=== PATIENT | male | born 1995 | race African-American/Black ===

== ENCOUNTER 2023-07-15 13:16 | Emergency (ER) | payer OTHER, MEDICAID, SELFPAY ==
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
[2023-07-15 13:57] VITALS: BP 152/87; PULSE 77; RESP 18; TEMP 36.8; O2SAT 99; BMI 46.6
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
== END 2023-07-15 19:19 | disposition home or self-care (01) ==
PROVIDERS: Emergency Provider Emergency Medicine; PCP Pediatrics
DX: S13.4XXA Sprain of ligaments of cervical spine, initial encounter (principal); M54.50 Low back pain, unspecified; M54.2 Cervicalgia; V43.52XA Car driver injured in collision with other type car in traffic accident, initial encounter; Y93.9 Activity, unspecified; Y92.410 Unspecified street and highway as the place of occurrence of the external cause; Y99.9 Unspecified external cause status
CPT/HCPCS: 72100; 72125; 99282; 99284

== ENCOUNTER 2024-08-11 10:14 | Outpatient (REF) | payer OTHER, MEDICAID, SELFPAY ==
[2024-08-11 14:23] LABS: MANUAL DIFF FLAG NO
[2024-08-11 14:32] LABS: Basophils Absolute Auto 0.1 X10*3/uL (0.0-0.2); Basophils Percent Auto 1.1 % (0-2); Eosinophils Absolute Auto 0.1 X10*3/uL (0.0-0.4); Eosinophils Percent Auto 1.8 % (0-4); Hematocrit 43.6 % (42.0-52.0); Hemoglobin 13.9 g/dl (14.0-18.0); Imm Gran Abs Auto 0.02 X10*3/uL (0.00-0.03); Imm Gran Pct Auto 0.3 % (0.0-0.4); Lymphocytes Absolute Auto 1.8 X10*3/uL (1.2-4.9); Lymphocytes Percent Auto 23.1 % (20-40); Mean Corpuscular HGB Conc 31.9 g/dl (31.0-36.0); Mean Corpuscular Hemoglobin 27.6 pg (27.0-33.0); Mean Corpuscular Volume 86.7 fL (80.0-98.0); Mean Platelet Volume 10.2 fL (9.4-12.4); Monocytes Absolute Auto 0.5 X10*3/uL (0.1-1.2); Monocytes Percent Auto 6.9 % (2-11); Neutrophils Absolute Auto 5.1 x10*3/uL (2.0-8.3); Neutrophils Percent Auto 66.8 % (45-73); Platelet Count 265 X10*3/uL (160-400); Red Blood Count 5.03 X10*6/uL (4.60-5.80); Red Cell Distribution Width 14.5 % (11.0-16.0); White Blood Count 7.6 X10*3/uL (4.8-10.8)
[2024-08-11 14:39] LABS: Estimated Average Glucose 97 mg/dL; Hemoglobin A1C 110.7298 umol/L; Total Hemoglobin (HGBA1C) 3496.9832 umol/L
[2024-08-11 14:53] LABS: Alanine Aminotransferase 17 U/L (0-40); Alkaline Phosphatase 46 U/L (39-117); Anion Gap 10 (12-20); Aspartate Amino Transferase 25 U/L (5-37); Bilirubin Direct 0.2 mg/dL (0.0-0.5); Blood Urea Nitrogen 11 mg/dL (9-16); Calcium 9.4 mg/dL (8.4-10.2); Carbon Dioxide 26 mmol/L (22-29); Chloride 106 mmol/L (96-108); Cholesterol 131 mg/dL (<200); Estimated Glomerular Filt Rate > 60; Glucose Fasting 90 mg/dL (60-99); HDL Cholesterol 46 mg/dL (>40); LDL Cholesterol Calculated 68 mg/dL (<100); Potassium 4.4 mmol/L (3.3-5.1); Sodium 138 mmol/L (135-145); Total Protein 8.2 g/dL (6.5-8.0); Triglycerides 86 mg/dL (<150)
[2024-08-11 15:09] LABS: TSH reflex Free T4 1.51 uIU/mL (0.32-4.0)
[2024-08-12 08:29] LABS: HIV AB/AG Nonreactive (Nonreactive); HIV Num 1 0.04 S/CO (0.00-0.99); ~HepC Num1 0.36 S/CO (0.00-0.79); ~Hepatitis C Antibody Nonreactive (Nonreactive)
== END 2024-08-11 10:15 | disposition home or self-care (01) ==
LOC: HO.CHCLDS 10:14
PROVIDERS: Visit Provider Pediatrics
DX: R03.0 Elevated blood-pressure reading, without diagnosis of hypertension (principal); E66.01 Morbid (severe) obesity due to excess calories; Z13.1 Encounter for screening for diabetes mellitus
CPT/HCPCS: 36415; 80048; 80061; 80076; 83036; 84443; 85025; 86803; 87389

== ENCOUNTER 2025-04-02 16:26 | Emergency (ER) | payer OTHER, SELFPAY ==
--- NOTE | ~2025-04-02 | XR_ITS ---
CLINICAL HISTORY: pain 3 views lumbar spine Comparison: CR/SR - XR LUMBAR SPINE 2-3V - 07/15/23 14:45 EDT Findings: Normal vertebral body alignment. No acute fractures or dislocation. No significant degenerative change. IMPRESSION: No acute findings. This document has been electronically signed by: Yamile Bernardo MD on 04/02/2025 18:05:59
[2025-04-02 16:27] VITALS: BP 129/57; PULSE 61; RESP 18; TEMP 36.8; O2SAT 100; BMI 44.9
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
--- OUTSIDE RECORDS SUMMARY | 2025-04-02 17:08 | XMS_ITS | Clinical Summary ---
Author Organization [employer] Address [address] [place] [address] Care Team Providers Care Catering Server Name Role Phone Andressa Wesley MD Primary Care Provider [phone] Allergies Active Allergy Reactions Criticality Noted Date Comments Sulfamethoxazole Other reaction(s): unspecified Trimethoprim Other reaction(s): unspecified Medications No known medications Active Problems Problem Noted Date Diagnosed Date Acute back pain with sciatica 04/24/2023 Anxiety 06/21/2017 Obstructive sleep apnea of adult 09/20/2015 Encounters Date Type Department Care Team Description 01/19/2025 Telephone [facility] [address] [place] [address] Andressa Wesley MD Recall from Last 3 Months Immunizations Immunization Administration Dates Next Due Hep B, adult 02/17/2014,01/06/2014 Influenza injectable quadriv alent IIV4 with preservative 09/20/2015 Influenza, Split (incl. purified surface antigen ) 08/27/2013 Tdap 08/27/2013 Social History Tobacco Use Types Packs/Day Years Used Date Smoking Tobacco: Former Cigarettes Q uit: 2021 Smokeless Tobacco: Never Alcohol Use Standard Drinks/Week Comments Never 0 (1 standard drink = 0.6 oz pur e alcohol) Depression Answer Date Recorded Patient Health Questionnaire-9 Score 12 08/11/2024 Patient Health Questionnaire-9 Score 12 08/11/2024 Last PHQ-9: Questionnaire Data Not on file 1 Housing Stability Answer Date Recorded What is your housing situation today? I have aliya sing 08/04/[address] you li ve. Do you have problems with any of the following? None of the above 08/04/2024 Food Insecurity Answer Date Recorded Within the past 12 months, y ou worried that your food would run out before you got money to buy more: Never True 08/04/2024 Within the past 12 months,th e food you bought just didn't last and you didn't have enough money to get more: Never True Transportation Answer Date Recorded In the past 12 months, has l ack of transportation kept you from medical appts, meetings, work or from getting things needed for daily living? No 08/04/2024 Utilities Answer Date Recorded In the past 12 months, has t he electric, gas, oil or water company threatened to shut off services in your home? No 08/04/2024 Depression Answer Date Recorded Patient Health Questionnaire-2 Score 5 08/11/2024 Internet Access Answer Date Recorded Internet Access Q1 Yes 08/04/2024 Internet Access Q2 Not on file 08/04/2024 Sex and Gender Information Value Date Recorded Sex Assigned at Male 09/10/2022 10:15 AM EDT Legal Sex Male 10:15 AM EDT Gender Identity Male 09/10/2022 10:15 AM EDT Sexual Orientation Straight 08/11/2024 9: 56 AM EDT Last Filed Vital Signs Vital Sign Reading Time Taken Comments Blood Pressure 130/80 08/11/2024 9:36 AM EDT Pulse 71 08/11/2024 9:17 AM EDT Temperature 36.8 ??C (98.3 ??F) 08/11/2024 9:17 AM ED T Respiratory Rate 18 08/11/2024 9:17 AM EDT Oxygen Saturation 98% 08/11/2024 9:17 AM EDT Inhaled Oxygen Concentration - - Weight 131 kg (288 lb 4 oz) 08/11/2024 9:17 AM E DT Height 175.3 cm (5' 9 ) 08/11/2024 9:17 AM EDT Body Mass Index 42.57 08/11/2024 9:17 AM EDT Plan of Treatment Health Maintenance Due Date Last Done Comments Disability Screening 1993 Alcohol/Substance Use Screening 2005 Family Planning (PISQ) 2008 Hepatitis B Vaccines (3 of 3 - 19+ 3-dose series) 07/06/2014 02/17/2014, 01/06/2014 DTaP/Tdap/Td Vaccines (2 - T d or Tdap) 08/27/2023 08/27/2013 COVID-19 Vaccine (2 - 2023-2 5 season) 2024 09/04/2022 Influenza Vaccine (#1) 2024 5, 08/27/2013 SDOH Screening 08/04/2025 08/04/2024 Depression Screening 08/11/2025 08/11/2024, 08/11/2024 Tobacco Screening 08/11/2025 08/11/2024 Lipid Panel 08/11/2029 08/11/2024, 03/09/2022 Zoster Vaccines (1 of 2) 2043 RSV Patients and Patients Aged 60 years or older (1 - 1-dose 75+ series) 2068 HIV Screening Completed 08/11/2024 Hepatitis C Screening Completed 08/11/2024 HIB Vaccines Aged Out No longer eligi ble based on patient's age to complete this topic HPV Vaccines Aged Out No longer eligi ble based on patient's age to complete this topic Hepatitis A Vaccines Aged Out No long er eligible based on patient's age to complete this topic IPV Vaccines Aged Out No longer eligi ble based on patient's age to complete this topic Meningococcal B Vaccine Aged Out No l onger eligible based on patient's age to complete this topic Meningococcal Vaccine Aged Out No jesse nickie eligible based on patient's age to complete this topic Pneumococcal Vaccine: Pediatrics (0 to 5 Years) and At-Risk Patients (6 to 49) Years) Aged Out No longer eligible b ased on patient's age to complete this topic RSV under 20 months Aged Out No longe r eligible based on patient's age to complete this topic Rotavirus Vaccines Aged Out No longer eligible based on patient's age to complete this topic Procedures Procedure Name Priority Date/Time Associated Diagnosis Comments HEPATITIS C AB W/REFL TO HCV RNA, QN, PCR Routine 08/11/2024 10:16 AM EDT Elevated blood pressure reading Obesity, morbid (more than 100 lbs over ideal weight or BMI > 40) (CMS/HCC) HIV 1/2 ANTIGEN/ANTIBODY, FOURTH GENERATION W/RFL Routine 08/11/2024 10:16 AM EDT Elevated blood pressure reading Obesity, morbid (more than 100 lbs over ideal weight or BMI > 40) (CMS/HCC) LIPID PANEL, STANDARD Routine 08/11/2024 10:16 AM EDT Elevated blood pressure reading Obesity, morbid (more than 100 lbs over ideal weight or BMI > 40) (CMS/HCC) from Last 3 Months or Most Recently Relevant to Health Maintenance Results * Hepatitis C Antibody with Reflex to HCV, RNA, Quantitative, Real-Time PCR (08/11/2024 10:16 AM EDT) Pathologist [facility] Hepatitis C Antibody Nonreactive Nonreactive [facility] Comment:Antibodies to HCV no t detected; does not exclude early acuteHCV infection. Blood Venous blood specimen / Unknown 08/11/2024 10:16 AM EDT 08/11/2024 2:13 PM EDT us Andressa Wesley MD LAB BLOOD ORDERABLES Final Re sult [facility] [address] [place] [phone] * HIV-1/2 Antigen and Antibodies, Fourth Generation, with Reflexes (08/11/2024 10:16 AM EDT) Pathologist [facility] HIV AB/AG Nonreactive Nonreactive [facility] Comment:HIV-1 p24 Ag and/or HIV-1/HIV-2 Ab not detected.A test result that is nonreactive does not exclude thepossibility of exposure to or infection with HIV-1 and/orHIV-2. Nonreactive results in this assay for individualswith prior exposure to HIV-1 and/or HIV-2 may be due toantigen and antibody levels that are below the limit ofdetection of this assay.The [employer] HIV Ag/Ab Combo assay result andsupplemental assay results should be interpreted inconjunction with the patient's clinical presentation,history and other laboratory results. If the results areinconsistent with clinical evidence, additional testing issuggested to confirm the result. Blood Venous blood specimen / Unknown 08/11/2024 10:16 AM EDT 08/11/2024 2:13 PM EDT Andressa Wesley MD LAB BLOOD ORDERABLES Final Re sult Performing Organization Address [facility] Co de Phone Number [facility] [address] [place] [phone] * Lipid Panel, Standard (08/11/2024 10:16 AM EDT) Triglycerides 86 <150 mg/dL [facility] Comment:Desirable Triglyceri de: less than 150 mg/dLBorderline High Triglyceride 150-199 mg/dLHigh Triglyceride: 200-499 mg/dLVery High Triglyceride: greater than or equal to 5OO mg/dL Cholesterol 131 <200 mg/dL [facility] Comment:Desirable Cholestero l: less than 200 mg/dLBorderline High Cholesterol: 200-239 mg/dLHigh Cholesterol: greater than 239 mg/dL LDL Cholesterol Calculated 68 <100 mg/dL [facility] Comment:Desirable LDL: less than 100 mg/dLNear Optimal/Above Optimal LDL: 110- 129 mg/dLBorderline High LDL: 130-159 mg/dLHigh LDL: 160-189 mg/dLVery High LDL: greater than or equal to 190 mg/dL HDL Cholesterol 46 >40 mg/dL [facility] Comment:Desirable HDL: great er than 40 mg/dL Note: This HDL assay may give artificially low results in patients with liver disease. Blood Venous blood specimen / Unknown 08/11/2024 10:16 AM EDT 08/11/2024 2:13 PM EDT us Andressa Wesley MD LAB BLOOD ORDERABLES Final Re sult Performing Organization Address [facility] Co de Phone Number [facility] [address], [place] [phone] from Last 3 Months or Most Recently Relevant to Health Maintenance Insurance [facility] [employer] Care Teams Catering Server Relationship Specialty Start Date End Date Andressa Wesley MD [address] [place] [phone] PCP - General Family Medicine 07/29/12
[2025-04-02 18:18] VITALS: BP 139/65; PULSE 68; RESP 18; TEMP 36.5; O2SAT 99
[2025-04-02 18:51] VITALS: BP 139/65; PULSE 68; RESP 18; TEMP 36.5; O2SAT 99
== END 2025-04-02 18:51 | disposition home or self-care (01) ==
PROVIDERS: Emergency Provider Emergency Medicine Emergency Medical Services
DX: M54.50 Low back pain, unspecified (principal)
CPT/HCPCS: 72100; 99283

== ENCOUNTER → 2025-04-02 16:29 | Outpatient (BNV) | payer OTHER, SELFPAY | PROVIDERS: Emergency Provider Emergency Medicine Emergency Medical Services; Visit Provider Radiology Diagnostic Radiology | DX: M54.50 Low back pain, unspecified (principal) | CPT/HCPCS: 72100 ==

== ENCOUNTER 2025-04-12 11:56 | Outpatient (REF) | payer OTHER, SELFPAY ==
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
--- OUTSIDE RECORDS SUMMARY | 2025-04-12 13:10 | XMS_ITS | Clinical Summary ---
Author Organization [employer] Address [address] [facility] [address] [place] [address] Care Team Providers Care Torch Operator Name Role Phone Andressa Wesley MD Primary Care Provider [phone] Allergies Active Allergy Reactions Criticality Noted Date Comments Sulfamethoxazole Other reaction(s): unspecified Trimethoprim Other reaction(s): unspecified Medications No known medications Active Problems Problem Noted Date Diagnosed Date Acute back pain with sciatica 04/24/2023 Anxiety 06/21/2017 Obstructive sleep apnea of adult 09/20/2015 Encounters Date Type Department Care Team Description 01/19/2025 Telephone [facility] [address] [place], [place] [phone] Andressa Wesley MD Recall from Last 3 [...] (2 - 2023-2 5 season) 2024 09/04/2022 Depression Monitoring 02/09/2025 08/11/2024 , 08/11/2024 Influenza Vaccine (Season Ended) 2025 09/20/2015, 08/27/2013 SDOH Screening 08/04/2025 08/04/2024 Tobacco Screening 08/11/2025 08/11/2024 Lipid Panel 08/11/2029 [...] Real-Time PCR (08/11/2024 10:16 AM EDT) Pathologist [facility] Hepatitis C Antibody Nonreactive Nonreactive [facility] Comment:Antibodies to HCV no t detected; does not exclude early acuteHCV infection. Blood Venous blood specimen / Unknown 08/11/2024 10:16 AM EDT 08/11/2024 2:13 PM EDT us Andressa Wesley MD LAB BLOOD ORDERABLES Final Re sult [facility] [address] [place] [phone] * HIV-1/2 Antigen and Antibodies, Fourth Generation, with Reflexes (08/11/2024 10:16 AM EDT) HIV AB/AG Nonreactive Nonreactive [facility] Comment:HIV-1 p24 Ag and/or HIV-1/HIV-2 Ab not detected.A test result that is nonreactive does not exclude thepossibility of exposure to or infection with HIV-1 and/orHIV-2. Nonreactive results in this assay for individualswith prior exposure to HIV-1 and/or HIV-2 may be due toantigen and antibody levels that are below the limit ofdetection of this assay.The [employer] HIV Ag/Ab Combo assay result andsupplemental assay results should be interpreted inconjunction with the patient's clinical presentation,history and other laboratory results. If the results areinconsistent with clinical evidence, additional testing issuggested to confirm the result. Blood Venous blood specimen / Unknown 08/11/2024 10:16 AM EDT 08/11/2024 2:13 PM EDT Andressa Wesley MD LAB BLOOD ORDERABLES Final Re sult Performing Organization Address [facility] Co de Phone Number [facility] [address] [place] [phone] * Lipid Panel, Standard (08/11/2024 10:16 AM EDT) Triglycerides 86 <150 mg/dL [facility] Comment:Desirable Triglyceri de: less than 150 mg/dLBorderline High Triglyceride 150-199 mg/dLHigh Triglyceride: 200-499 mg/dLVery High Triglyceride: greater than or equal to 5OO mg/dL Cholesterol 131 <200 mg/dL [facility] Comment:Desirable Cholestero l: less than 200 mg/dLBorderline High Cholesterol: 200-239 mg/dLHigh Cholesterol: greater than 239 mg/dL LDL Cholesterol Calculated 68 <100 mg/dL [facility] Comment:Desirable LDL: less than 100 mg/dLNear Optimal/Above Optimal LDL: 110- 129 mg/dLBorderline High LDL: 130-159 mg/dLHigh LDL: 160-189 mg/dLVery High LDL: greater than or equal to 190 mg/dL HDL Cholesterol 46 >40 mg/dL [facility] Comment:Desirable HDL: great er than 40 mg/dL Note: This HDL assay may give artificially low results in patients with liver disease. Blood Venous blood specimen / Unknown 08/11/2024 10:16 AM EDT 08/11/2024 2:13 PM EDT us Andressa Wesley MD LAB BLOOD ORDERABLES Final Re sult Performing Organization Address [facility]/ZIP Co de Phone Number [facility] [address] [place], [place] [phone] from Last 3 Months or Most Recently Relevant to Health Maintenance Insurance [facility] ALLSTATE Care Teams Torch Operator Relationship Specialty Start Date End Date Andressa Wesley MD [address] [place] [phone] PCP - General Family Medicine 07/29/12
== END 2025-04-12 11:57 | disposition home or self-care (01) ==
LOC: HO.LAB 11:56
PROVIDERS: PCP Pediatrics; Visit Provider Chiropractor
DX: Z04.1 Encounter for examination and observation following transport accident (principal)
CPT/HCPCS: 72052

== ENCOUNTER → 2025-04-12 12:07 | Outpatient (BNV) | payer OTHER, SELFPAY | PROVIDERS: PCP Pediatrics; Visit Provider Nuclear Medicine | DX: M54.50 Low back pain, unspecified (principal); V89.2XXA Person injured in unspecified motor-vehicle accident, traffic, initial encounter | CPT/HCPCS: 72052 ==

== ENCOUNTER 2025-11-01 11:19 | Outpatient (REF) | payer OTHER, SELFPAY ==
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
--- OUTSIDE RECORDS SUMMARY | 2025-11-02 12:49 | XMS_ITS | Clinical Summary ---
Author Organization [employer] Address [address] [facility] [address] [place] [address] Care Team Providers Care Suede Cleaner Name Role Phone Andressa Wesley MD Primary Care Provider [phone] Allergies Active Allergy Reactions Criticality Noted Date Comments Sulfamethoxazole Other reaction(s): unspecified Trimethoprim Other reaction(s): unspecified Medications doxycycline (Vibramycin) 100 MG capsuleIndicati ons:Abscess Take 1 capsule (100 mg) by mouth 2 times daily for 5 days. Take with at least 8 ounces (large glass) of water, do not lie down for 30 minutes after 10 capsule 11/01/2025 5 Active ibuprofen 800 MG tabletIndicatio ns:Abscess Take 1 tablet (800 mg) by mouth every 8 (eight) hours if needed for mild pain for up to 10 days. 30 tablet 11/01/2025 6 Active Hospital, Clinic, or Other Facility Administered Medication Ordered Dose Route Frequency Start Date End Date Status lidocaine (Xylocaine) 1 % injection 40 mgIndications:Abscess 40 mg ID Once 11/01/2025 11/01/2025 End ed Active Problems Problem Noted Date Diagnosed Date Acute back pain with sciatica 04/24/2023 Anxiety 06/21/2017 Obstructive sleep apnea of adult 09/20/2015 Encounters Date Type Department Care Team Description 11/01/2025 2:40 PM EST Office Visit [facility] [address] [place] [address] Abscess (Primary Dx) 11/01/2025 Travel 11/01/2025 Telephone [facility] [address] [place] [address] Andressa Wesley MD Nurse Triage 08/31/2025 Population Health Risk Score [facility] ([facility] Department [address] [place] [phone] Provider, Population Health Generic 08/13/2025 Telephone [facility] [address] [place] [address] Andressa Wesley MD Appointment Request from Last 3 Months Immunizations Immunization Administration Dates Next Due Hep B, adult 02/17/2014,01/06/2014 Influenza injectable quadriv alent IIV4 with preservative 09/20/2015 Influenza, Split (incl. purified surface antigen ) 08/27/2013 Tdap 07/29/2025,08/27/2013 Social History Tobacco Use Types Packs/Day Years [...] (355 lb) 11/01/2025 2:30 PM EST Height 175.3 cm (5' 9 ) 07/29/2025 10:19 AM EDT Body Mass Index 52.42 07/29/2025 10:19 AM EDT Plan of Treatment Health Maintenance Due Date Last Done Comments Family Planning (PISQ) 2008 HPV Vaccines (1 - Male 3-dos e series) 2008 Hepatitis B Vaccines (3 of 3 - 19+ 3-dose series) 07/06/2014 02/17/2014, 01/06/2014 COVID-19 Vaccine (2 - 2024-2 6 season) 2025 09/04/2022 Influenza Vaccine (#1) 2025 5, 08/27/2013 Alcohol/Substance Use Screening 07/29/2026 07/29/2025 Depression Screening 07/29/2026 07/29/2025, 07/29/2025 Disability Screening 07/29/2026 07/29/2025 SDOH Screening 07/29/2026 07/29/2025 Tobacco Screening 11/01/2026 11/01/2025 Lipid Panel 08/11/2029 08/11/2024, 03/09/2022 DTaP/Tdap/Td Vaccines (3 - T d or Tdap) 07/29/2035 07/29/2025, 08/27/2013 Zoster Vaccines (1 of 2) 2043 RSV [...] Years) and At-Risk Patients (6 to 49) Years Aged Out No longer eligible b ased [...] Quantitative, Real-Time PCR (08/11/2024 10:16 AM EDT) Hepatitis C Antibody Nonreactive Nonreactive [facility] Comment:Antibodies to HCV no t detected; does not exclude early acuteHCV infection. Blood Venous blood specimen / Unknown 08/11/2024 10:16 AM EDT 08/11/2024 2:13 PM EDT Andressa Wesley MD LAB BLOOD ORDERABLES Final Re sult Performing Organization Address City/[facility]/ZIP Co de Phone Number [facility] [address] [place] [phone] * HIV-1/2 Antigen and Antibodies, Fourth Generation, with Reflexes (08/11/2024 10:16 AM EDT) [facility] HIV AB/AG Nonreactive Nonreactive [facility] Comment:HIV-1 p24 Ag and/or HIV-1/HIV-2 Ab not detected.A test result that is nonreactive does not exclude thepossibility of exposure to or infection with HIV-1 and/orHIV-2. Nonreactive results in this assay for individualswith prior exposure to HIV-1 and/or HIV-2 may be due toantigen and antibody levels that are below the limit ofdetection of this assay.The [employer] HIV Ag/Ab Combo assay result andsupplemental assay results should be interpreted inconjunction with the patient's clinical presentation,history and other laboratory results. If the results areinconsistent with clinical evidence, additional testing issuggested to confirm the result. Blood Venous blood specimen / Unknown 08/11/2024 10:16 AM EDT 08/11/2024 2:13 PM EDT Andressa Wesley MD LAB BLOOD ORDERABLES Final Re sult Performing Organization Address City/[facility]/ZIP Co de Phone Number [facility] [address] [place] [phone] * Lipid Panel, Standard (08/11/2024 10:16 AM EDT) Triglycerides 86 <150 mg/dL [facility] Comment:Desirable Triglyceri de: less than 150 mg/dLBorderline High Triglyceride 150-199 mg/dLHigh Triglyceride: 200-499 mg/dLVery High Triglyceride: greater than or equal to 5OO mg/dL Cholesterol 131 <200 mg/dL [facility] Comment:Desirable Cholestero l: less than 200 mg/dLBorderline High Cholesterol: 200-239 mg/dLHigh Cholesterol: greater than 239 mg/dL LDL Cholesterol Calculated 68 <100 mg/dL [facility] Comment:Desirable LDL: less than 100 mg/dLNear Optimal/Above Optimal LDL: 110- 129 mg/dLBorderline High LDL: 130-159 mg/dLHigh LDL: 160-189 mg/dLVery High LDL: greater than or equal to 190 mg/dL HDL Cholesterol 46 >40 mg/dL [facility] Comment:Desirable HDL: great er than 40 mg/dL Note: This HDL assay may give artificially low results in patients with liver disease. Blood Venous blood specimen / Unknown 08/11/2024 10:16 AM EDT 08/11/2024 2:13 PM EDT us Andressa Wesley MD LAB BLOOD ORDERABLES Final Re sult [facility] [address] [place] [phone] from Last 3 Months or Most Recently Relevant to Health Maintenance Insurance [facility] [employer] Care Teams Suede Cleaner Relationship Specialty Start Date End Date Andressa Wesley MD [address] [place] [phone] PCP - General Family Medicine 07/29/12
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
--- OUTSIDE RECORDS SUMMARY | 2025-11-02 12:49 | XMS_ITS | Encounter Summary ---
Author Organization [employer] Address [address] [facility] [address] [place] [address] Care Team Providers Care Groundskeeping Yardman Name Role Phone Andressa Wesley MD Primary Care Provider [phone] Encounter Details Date Type Department Care Team (Latest Contact Info) Description 11/01/2025 Travel Social History Tobacco Use Types Packs/Day Years [...] AM EDT documented as of this encounter Plan of Treatment Not on file documented as of this encounter Visit Diagnoses Not on filedocumented in this encounter Additional Health Concerns Assessment Noted Time PHQ-9 Depression Total Score: 2 07/29/20 25 10:20 AM EDT documented as of this encounter Care Teams Groundskeeping Yardman Relationship Specialty Start Date End Date Andressa Wesley MD [address] [place] [address] PCP - General Family Medicine 07/29/12 documented as of this encounter
--- OUTSIDE RECORDS SUMMARY | 2025-11-02 12:50 | XMS_ITS | Encounter Summary ---
Author Organization [employer] Address [address] [place] [address] [address] [place] [address] Care Team Providers Care Data Scientist Name Role Phone Andressa Wesley MD Primary Care Provider [phone] Reason for Visit * Reason Comments Med Change Request Encounter Details Date Type Department Care Team ([facility] Contact Info) Description 07/31/2023 Refill [facility] [address] [place], [place] [phone] Andressa Wesley MD [address] [place] [address] Social History Tobacco Use Types Packs/Day Years Used Date Smoking Tobacco: Former Cigarettes Q uit: 2021 Smokeless Tobacco: Never Alcohol Use Standard Drinks/Week Comments Never 0 (1 standard drink = 0.6 oz pur e alcohol) Depression Answer Date Recorded Patient Health Questionnaire-9 Score 0 05/20/2023 Depression Answer Date Recorded Patient Health Questionnaire-2 Score 0 05/20/2023 Sex and Gender Information Value Date Recorded Sex Assigned at Male 09/10/2022 10:15 AM EDT Legal Sex Male 10:15 AM EDT Gender Identity Male 09/10/2022 10:15 AM EDT Sexual Orientation Straight 08/11/2024 9: 56 AM EDT documented as of this encounter Miscellaneous Notes * Telephone Encounter - Andressa Wesley MD - 08/01/2023 2:11 PM EDT Approving, but needs appt for additional refills. documented in this encounter Plan of Treatment Not on file documented as of this encounter Visit Diagnoses Not on filedocumented in this encounter Additional Health Concerns Assessment Noted Time PHQ-9 Depression Total Score: 0 05/20/20 4:03 PM EDT documented as of this encounter Care Teams Data Scientist Relationship Specialty Start Date End Date Andressa Wesley MD [address] [place] [address] PCP - General Family Medicine 07/29/12 documented as of this encounter
--- OUTSIDE RECORDS SUMMARY | 2025-11-02 12:50 | XMS_ITS | Clinical Summary ---
Author Organization [facility] [facility] Address [address] [place] [address] Care Team Providers Care Fashion Patternmaker Name Role Phone Unavailable Primary Care Provider Unavailabl e Social History Tobacco Use Types Packs/Day Years Used Date Smoking Tobacco: Never Assessed Sex and Gender Information Value Date Recorded Sex Assigned at Not on file Legal Sex Male 1:03 PM EDT Gender Identity Not on file Sexual Orientation Not on file Plan of Treatment Health Maintenance Due Date Last Done Comments Hepatitis C Screening 1993 DTaP/Tdap/Td (1 - Tdap) 2011 Hep B (1 of 3 - 19+ 3-dose series) 2012 COVID-19 Vaccine (2024-2 6 season) 2025 Influenza (#1) 2025 Zoster (Shingrix) (1 of 2) 2043 HPV Vaccine (No Doses Required) Completed Hep A Aged Out No longer eligi ble based on patient's age to complete this topic Hib Aged Out No longer eligi ble based on patient's age to complete this topic Meningococcal ACWY Aged Out No longer eligible based on patient's age to complete this topic Pneumococcal Aged Out No longer eligi ble based on patient's age to complete this topic
--- OUTSIDE RECORDS SUMMARY | 2025-11-02 12:50 | XMS_ITS | Encounter Summary ---
Author Organization [employer] Address [address] [facility] [address] [place] [address] Care Team Providers Care Manager Of Global Name Role Phone Andressa Wesley MD Primary Care Provider [phone] Reason for Visit * Reason Comments Med Refill Encounter Details Date Type Department Care Team ([facility] Contact Info) Description 07/17/2023 Refill [facility] [address] [place], [place] [phone] Caryl Macedo MD [address] [place] [address] Social History Tobacco Use Types Packs/Day Years [...] Time PHQ-9 Depression Total Score: 0 05/20/20 23 4:03 PM EDT documented as of this encounter Care Teams Manager Of Global Relationship Specialty Start Date End Date Andressa Wesley MD [address] [place] [id number] PCP - General Family Medicine 07/29/12 documented as of this encounter
== END 2025-11-01 11:20 | disposition home or self-care (01) ==
LOC: HO.HHCLNP 11:19
PROVIDERS: Visit Provider Registered Nurse
DX: L02.91 Cutaneous abscess, unspecified (principal)
CPT/HCPCS: 87070; 87147; 87205

== ENCOUNTER 2025-11-05 09:54 | Outpatient (AMB) | payer MEDICAID, SELFPAY ==
--- OUTSIDE RECORDS SUMMARY | 2025-11-01 14:40 | XMS_ITS | Encounter Summary ---
Author Organization [email or web address] Address [address] [place] [address] Care Team Providers Care Banner Painter Name Role Phone Andressa Wesley MD Primary Care Provider [phone] Reason for Visit * Reason Comments Back Pain Encounter Details Date Type Department Care Team ([facility] st Contact Info) Description 11/01/2025 2:40 PM EST Office Visit [facility] [address] [place] [address] Abscess (Primary Dx) Social History Tobacco Use [...] documented as of this encounter Care Teams Banner Painter Relationship Specialty Start Date End Date Andressa Wesley MD [address] [place] [id number] PCP - General Family Medicine 07/29/12 documented as of this encounter
[2025-11-05 09:55] VITALS: BMI 50.1
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
--- OUTSIDE RECORDS SUMMARY | 2025-11-05 09:57 | XMS_ITS ---
[facility] Name [facility] Unknown History of Medication Use Medication Directions Dispensed Refills Start Date End Date Stat us active Allergies Allergen Reaction Severity Comment Documented Date Source Statu s BACITRACIN UNKNOWN REACTION () [facility] Encounters Encounter Type Encounter Reason Primary Diagnosis Location Date Ambulatory TBE Encounter for ot her administrative examinations [facility] 08/25/2025 Amb[facility]) 08/23/2025 Care Team Organization Name Specialty Phone Email Start Date End Da te [facility] 08/25/2025 [facility] 08/19/2025
--- OUTSIDE RECORDS SUMMARY | 2025-11-05 09:57 | XMS_ITS | Encounter Summary ---
Author Organization [employer] Address [address] [facility] 7t [place] [address] Care Team Providers Care Research Investigator Name Role Phone Andressa Wesley MD Primary Care Provider [phone] Reason for Visit * Reason Comments Med Refill Encounter Details Date Type Department Care Team ([facility] Contact Info) Description 07/17/2023 Refill [facility] [address] [place], [place] [phone] Caryl Macedo MD [address] [place] [address] Social History Tobacco Use Types Packs/Day Years [...] documented as of this encounter Care Teams Research Investigator Relationship Specialty Start Date End Date Andressa Wesley MD [address] [place] [phone] PCP - General Family Medicine 07/29/12 documented as of this encounter
--- OUTSIDE RECORDS SUMMARY | 2025-11-05 09:57 | XMS_ITS | Encounter Summary ---
Author Organization [facility] [employer] Address [address] [place] [address] 7 [place] [address] Care Team Providers Care Labelling Machine Operator Name Role Phone Andressa Wesley MD Primary Care Provider [phone] Reason for Visit * Reason Comments Med Change Request Encounter Details Date Type Department Care Team ([facility] Contact Info) Description 07/31/2023 Refill [facility] [address] [place], [place] [phone] Andressa Wesley MD [address] [place] [address] Social History Tobacco Use Types Packs/Day Years [...] documented as of this encounter Care Teams Labelling Machine Operator Relationship Specialty Start Date End Date Andressa Wesley MD [address] [place] [address] PCP - General Family Medicine 07/29/12 documented as of this encounter
--- OUTSIDE RECORDS SUMMARY | 2025-11-05 09:57 | XMS_ITS | Encounter Summary ---
Author Organization [employer] Address [address] [facility] [address] [place] [address] Care Team Providers Care Ice Crusher Name Role Phone Andressa Wesley MD Primary Care Provider [phone] Reason for Visit * Reason Onset Date Comments Nurse Triage 11/01/2025 Encounter Details Date Type Department Care Team ([facility] Contact Info) Description 11/01/2025 Telephone [facility] [address] [place], [place] [phone] Andressa Wesley MD [address] [place] [address] Nurse Triage Social History Tobacco Use Types [...] week of 11/01 to present to the [facility] for further evaluation. Pt agreeable [...] caller accepted this outcome. Contact pt at [phone] documented in this encounter Plan of Treatment Not on file documented as of this encounter Visit Diagnoses Not on filedocumented in this encounter Additional Health Concerns Assessment Noted Time PHQ-9 Depression Total Score: 2 07/29/20 25 10:20 AM EDT documented as of this encounter Care Teams Ice Crusher Relationship Specialty Start Date End Date Andressa Wesley MD [address] [place] [phone] PCP - General Family Medicine 07/29/12 documented as of this encounter
--- OUTSIDE RECORDS SUMMARY | 2025-11-05 09:57 | XMS_ITS | Clinical Summary ---
Author Organization [employer] Address [address] [facility] [address] [place] [address] Care Team Providers Care Nuclear Waste Management Engineer Name Role Phone Andressa Wesley MD Primary Care Provider [phone] Allergies Active Allergy Reactions Criticality Noted Date [...] Description 11/01/2025 2:40 PM EST Office Visit [facility] [address] [place] [address] Abscess (Primary Dx) 11/01/2025 Travel 11/01/2025 Telephone [facility] [address] [place] [address] Andressa Wesley MD Nurse Triage 08/31/2025 Population Health Risk Score [facility] (C3) Department [address] [place] [phone] Provider, Population Health Generic 08/13/2025 Telephone [facility] [address] [place] [address] Andressa Wesley MD Appointment Request from Last [...] Procedure Name Priority Date/Time Associated Diagnosis Comments GRAM STAIN RESULT (NON ORDERABLE) Routine 11/01/2025 4:26 PM EST HEPATITIS C AB W/REFL TO HCV RNA, [...] Recently Relevant to Health Maintenance Results * Gram Stain Result (11/01/2025 4:26 PM EST) 11/01/2025 4:26 PM EST 11/02/2025 11:24 AM EST Comment:Butt Right Narrative [facility] - 11/04/2025 11:42 AM EST Gram stain results: 1+ polys 4+ red blood cells No organisms seen Streptococcus group c Quant Org ID 1+ Susc N/A Susceptibility not routinely performed on this isolate. Specimen Source: Buttock Right [facility] TOOL AND DIE MANAGER HISTORICAL/NON ORDERABLE LABS Final Result Performing Organization Address [facility] Co de Phone Number [facility] [address] [place] [address] [phone] * Hepatitis C Antibody with Reflex to HCV, RNA, Quantitative, Real-Time PCR (08/11/2024 10:16 AM EDT) Hepatitis C Antibody Nonreactive Nonreactive [facility] Comment:Antibodies to HCV no t detected; does not exclude early acuteHCV infection. Blood Venous blood specimen / Unknown 08/11/2024 10:16 AM EDT 08/11/2024 2:13 PM EDT Andressa Wesley MD LAB BLOOD ORDERABLES Final Re sult Performing Organization Address [facility]/ZIP Co de Phone Number [facility] [address] [place] [address] [phone] * HIV-1/2 Antigen and Antibodies, Fourth Generation, with Reflexes (08/11/2024 10:16 AM EDT) HIV AB/AG Nonreactive Nonreactive [facility] Comment:HIV-1 p24 Ag and/or HIV-1/HIV-2 Ab not detected.A test result that is nonreactive does not exclude thepossibility of exposure to or infection with HIV-1 and/orHIV-2. Nonreactive results in this assay for individualswith prior exposure to HIV-1 and/or HIV-2 may be due toantigen and antibody levels that are below the limit ofdetection of this assay.The [employer] [place] HIV Ag/Ab Combo assay result andsupplemental assay results should be interpreted inconjunction with the patient's clinical presentation,history and other laboratory results. If the results areinconsistent with clinical evidence, additional testing issuggested to confirm the result. Blood Venous blood specimen / Unknown 08/11/2024 10:16 AM EDT 08/11/2024 2:13 PM EDT Andressa Wesley MD LAB BLOOD ORDERABLES Final Re sult Performing Organization Address [facility]/State/ZIP Co de Phone Number [facility] [address] [place], [place] [phone] Lipid Panel, Standard (08/11/2024 10:16 AM EDT) Triglycerides 86 <150 mg/dL [facility] Comment:Desirable Triglyceri de: less than 150 mg/dLBorderline High Triglyceride 150-199 mg/dLHigh Triglyceride: 200-499 mg/dLVery High Triglyceride: greater than or equal to 5OO mg/dL Cholesterol 131 <200 mg/dL [facility] Comment:Desirable Cholestero l: less than 200 mg/dLBorderline High Cholesterol: 200-239 mg/dLHigh Cholesterol: greater than 239 mg/dL LDL Cholesterol Calculated 68 <100 mg/dL [facility] Comment:Desirable LDL: less than 100 mg/dLNear Optimal/Above Optimal LDL: 110- 129 mg/dLBorderline High LDL: 130-159 mg/dLHigh LDL: 160-189 mg/dLVery High LDL: greater than or equal to 190 mg/dL HDL Cholesterol 46 >40 mg/dL [facility] Comment:Desirable HDL: great er than 40 mg/dL Note: This HDL assay may give artificially low results in patients with liver disease. Blood Venous blood specimen / Unknown 08/11/2024 10:16 AM EDT 08/11/2024 2:13 PM EDT Andressa Wesley MD LAB BLOOD ORDERABLES Final Re sult [facility] [address] [place] [address] [phone] from Last 3 Months or Most Recently Relevant to Health Maintenance Insurance [facility] [employer] Care Teams Nuclear Waste Management Engineer Relationship Specialty Start Date End Date Andressa Wesley MD [address] [place] [id number] PCP - General Family Medicine 07/29/12
--- OUTSIDE RECORDS SUMMARY | 2025-11-05 09:57 | XMS_ITS | Clinical Summary ---
Author Organization [facility] Address [address] [place] [address] Care Team Providers Care Fluid Power Mechanic Name Role Phone Unavailable Primary Care Provider [...]
--- OUTSIDE RECORDS SUMMARY | 2025-11-05 09:57 | XMS_ITS | Encounter Summary ---
Author Organization [employer] Address [address] [facility] [address] [place] [address] Care Team Providers Care Painter And Body Work Name Role Phone Andressa Wesley MD Primary Care Provider [phone] Encounter Details Date Type Department Care Team [...] documented as of this encounter Care Teams Painter And Body Work Relationship Specialty Start Date End Date Andressa Wesley MD [address] [place] [address] PCP - General Family Medicine 07/29/12 documented as of this encounter
== END 2025-11-05 11:29 | disposition home or self-care (01) ==
PROVIDERS: PCP Pediatrics; Visit Provider Surgery
DX: L05.91 Pilonidal cyst without abscess (principal)
CPT/HCPCS: 99203

== ENCOUNTER → 2025-11-05 09:54 | Outpatient (BNVA) | payer MEDICAID, SELFPAY | PROVIDERS: PCP Pediatrics; Visit Provider Surgery | DX: L05.91 Pilonidal cyst without abscess (principal) | CPT/HCPCS: 99202 ==